=== PATIENT | male | born 1970 | race Two or more races ===

== ENCOUNTER 2023-03-13 23:31 | Emergency (ER) | payer SELFPAY ==
[~2023-03-13] VITALS: Ht 157.5 cm; Wt 73.5 kg
[2023-03-13] MEDS ORDERED: IBUPROFEN 400 MG TABLET ONE (23:59)
[2023-03-14] MEDS ORDERED: IBUPROFEN 400 MG TABLET PO ONE
[2023-03-14 00:51] VITALS: BP 168/102; TEMP 98.1; O2SAT 98
== END 2023-03-14 00:52 | disposition home or self-care (01) ==
LOC: ER 23:35
DX: R07.81 Pleurodynia (principal); I10 Essential (primary) hypertension; Z60.2 Problems related to living alone
CPT/HCPCS: 71100-TC